=== PATIENT | male | born 1995 | race Two or more races ===

== ENCOUNTER 2018-10-10 13:59 | Emergency (ER) | payer MEDICAID ==
[~2018-10-10] VITALS: Ht 177.8 cm; Wt 77.1 kg
[2018-10-10] MEDS ORDERED: NKM (14:07)
[2018-10-10 14:19] VITALS: BP 127/56
[2018-10-10] MEDS ORDERED: Potassium Chloride 10 MEQ in 1/2 NS 1000ml 1,000 ML IV SCH (14:30)
[2018-10-10 15:25] LABS: HEMATOCRIT 50.1 % (42.0-52.0); MEAN CORPUSCULAR VOLUME 87 FL (80-99); PLATELET COUNT 262 K/UL (150-450); RED BLOOD COUNT 5.73 M/UL (4.70-6.10); RED CELL DISTRIBUTION WIDTH 11.1 % (11.6-14.8)
[2018-10-10 15:34] LABS: APPEARANCE,URINE CLOUDY; BILIRUBIN, URINE NEGATIVE (NEGATIVE); COLOR,URINE AMBER; GLUCOSE, URINE (UA) NEGATIVE (NEGATIVE); KETONES,URINE 4+ (NEGATIVE); LEUKOCYTE ESTERASE ,URINE NEGATIVE (NEGATIVE); NITRITE,URINE NEGATIVE (NEGATIVE); PH,URINE 8 (4.5-8.0); PROTEIN,URINE 1+ (NEGATIVE); UROBILINOGEN,URINE 1 MG/DL (0.0-1.0)
[2018-10-10 15:40] LABS: ANION GAP 16 mmol/L (5-15); BLOOD UREA NITROGEN 20 mg/dL (7-18); CALCIUM 9.8 MG/DL (8.5-10.1); CARBON DIOXIDE 23 MMOL/L (21-32); CHLORIDE 101 MMOL/L (98-107); CREATININE 1.1 MG/DL (0.55-1.30); POTASSIUM 3.3 MMOL/L (3.5-5.1); SODIUM 139 MMOL/L (136-145)
--- NOTE | 2018-10-10 15:42 | Emergency Room Report ---
History of Present Illness General Chief Complaint: Abdominal Pain Source: Patient (Clarissa Gonzalez) Present Illness HPI 23-year-old male with no significant past medical history here complaining of chest tightness and headache after having 2 bottles of loss, himself 1 day ago. He mentions he had multiple drinks last night at a concert denies any drug use or any smoking started walking home after and fell on the cement and hit his headache is to cement. He reports loss of consciousness and dizziness after the fall. He also reports shortness of breath and chest tightness after waking up in the morning as well as multiple bouts of emesis with a few blood- tinged bouts. Eyes abdominal pain and diarrhea. Denies vision changes, memory loss, and any other injury. Patient has been drinking oral fluids since he woke up this morning however he felt like he needed to come to the ER and be checked out. He appears agitated, pupils dilated, and mildly in distress (Clarissa Gonzalez) Allergies: Coded Allergies: No Known Allergies (Unverified , 10/10/18) Patient History Past Medical History: see triage record Past Surgical History: unable to obtain Pertinent Family History: none Immunizations: UTD Reviewed Nursing Documentation: PMH: Agreed; PSxH: Agreed (Clarissa Gonzalez) Nursing Documentation-PMH Past Medical History: No History, Except For Hx Asthma: Yes (Clarissa Gonzalez) Review of Systems All Other Systems: negative except mentioned in HPI (Clarissa Gonzalez) Physical Exam Vital Signs Date Time Temp Pulse Resp B/P (MAP) Pulse Ox O2 Delivery O2 Flow Rate FiO2 10/10/18 14:03 98.2 98 19 127/56 98 Room Air Sp02 EP Interpretation: reviewed, normal General Appearance: alert, GCS 15, mild distress Head: other - right parietal lobe tenderness to palpation no laceration observed Eyes: bilateral eye abnormal pupil, bilateral eye other - nystagmus ENT: normal ENT inspection, normal pharynx Neck: normal inspection, full range of motion, supple, thyroid normal Respiratory: normal inspection, lungs clear, normal breath sounds, no rhonchi, no respiratory distress, no wheezing Cardiovascular #1: no edema, no gallop, no murmur, no rub, tachycardia Cardiovascular #2: 2+ radial (R), 2+ radial (L) Gastrointestinal: normal inspection, soft, no mass Rectal: deferred Genitourinary: deferred Musculoskeletal: normal inspection, back normal, digits/nails normal, gait/ station normal Neurologic: alert, oriented x3, responsive, motor strength/tone normal, sensory intact, normal gait, speech normal Psychiatric: normal inspection, judgement/insight normal, memory normal, no suicidal/homicidal ideation Skin: normal inspection, normal color, no rash, warm/dry, palpation normal Lymphatic: normal inspection, no adenopathy (Clarissa Gonzalez) Medical Decision Making PA Attestation all diagnosis and treatment plans were reviewed and discussed my supervising physician Dr. Gomes (Clarissa Gonzalez) Diagnostic Impression: Primary Impression: Alcohol intoxication Qualified Codes: F10.929 - Alcohol use, unspecified with intoxication, unspecified Additional Impressions: Marijuana use Dehydration Head contusion Qualified Codes: S00.83XA - Contusion of other part of head, initial encounter ER Course 23-year-old male with no significant past medical history here complaining of chest tightness and headache after having 2 bottles of loss, himself 1 day ago. He mentions he had multiple drinks last night at a concert denies any drug use or any smoking started walking home after and fell on the cement and hit his headache is to cement. He reports loss of consciousness and dizziness after the fall. He also reports shortness of breath and chest tightness after waking up in the morning as well as multiple bouts of emesis with a few blood- tinged bouts. Eyes abdominal pain and diarrhea. Denies vision changes, memory loss, and any other injury. Patient has been drinking oral fluids since he woke up this morning however he felt like he needed to come to the ER and be checked out. He appears agitated, pupils dilated, and mildly in distress Ddx considered but are not limited to referral hematoma, head concussion, Mya-Miranda tear, intoxication, aspiration Vital signs: are WNL, pt. is afebrile H&PE are most consistent with alcohol intoxication, dehydration, head concussion , marijuana use ORDERS: blood alcohol level, tox screen, chest x-ray, EKG, head CT chest, cbc, cmp, ua, lipase, iv fluids with potassium, Zofran, CXR ED INTERVENTIONS: IV hydration DISCHARGE: At this time pt. is stable for d/c to home. Will provide printed patient care instructions, and any necessary prescriptions. Care plan and follow up instructions have been discussed with the patient prior to discharge. pos marijuana, potassium 3.3, 4+ ketones and urine (Clarissa Gonzalez) ER Course Please see above note. I examined this patient and agree with evaluation and treatment plan. (Samuel Gomes MD) EKG Diagnostic Results EP Interpretation: pericarditis Rate: tachycardiac Rhythm: other - pericarditis ST Segments: other - pericarditis (Clarissa Gonzalez) Chest X-Ray Diagnostic Results Chest X-Ray Diagnostic Results : Chest X-Ray Ordered: Yes # of Views/Limited/Complete: 1 View, 2 View Indication: Shortness of Breath EP Interpretation: Yes PA Xray: Interpretation reviewed, by supervising MD, and agrees with findings. Interpretation: no consolidation, no effusion, no pneumothorax, no acute cardiopulmonary disease Impression: No acute disease Electronically Signed by: Clarissa Gaxiola PA-C (Clarissa Gonzalez) CT/MRI/US Diagnostic Results CT/MRI/US Diagnostic Results : Imaging Test Ordered: head CT contrast Impression CT HEAD Without Contrast: No acute intracranial abnormality identified. Examination is limited by motion artifact at the skull base. (Clarissa Gonzalez) Last Vital Signs Date Time Temp Pulse Resp B/P (MAP) Pulse Ox O2 Delivery O2 Flow Rate FiO2 10/10/18 14:03 98.2 98 19 127/56 98 Room Air (Clarissa Gonzalez) Disposition: HOME, SELF-CARE Condition: Stable Scripts Ondansetron (Zofran) 4 Mg Tablet 4 MG ORAL Q6H PRN for Nausea & Vomiting, #10 TAB Prov: Clarissa Gonzalez 10/10/18 Referrals: [facility],REFERRING (PCP) Patient Instructions: Alcohol Intoxication, [id number], Cannabis Use Disorder , Dehydration, Adult, Fami-gc-Rodr, Facial or Scalp Contusion Additional Instructions: avoid drinking alcohol, follow with her primary care provider if vomiting continues, increase oral hydration, avoid using marijuana, Clarissa Gonzalez Oct 10, 2018 15:42 Samuel Gomes MD Oct 11, 2018 03:10
[2018-10-10 15:51] LABS: ALANINE AMINOTRANSFERASE 30 U/L (12-78); ALBUMIN 5.1 G/DL (3.4-5.0); ALBUMIN/GLOBULIN RATIO 1.1 (1.0-2.7); ALKALINE PHOSPHATASE 71 U/L (46-116); ASPARTATE AMINO TRANSFERASE 31 U/L (15-37); BILIRUBIN,TOTAL 1.2 MG/DL (0.2-1.0)
[2018-10-10 16:01] LABS: BILIRUBIN,DIRECT 0.3 MG/DL (0.0-0.3)
[2018-10-10 16:30] VITALS: BP 124/59
[2018-10-10] MEDS ORDERED: ZOFRAN4 M1 ORAL (17:28)
[2018-10-10 17:39] VITALS: BP 113/55
--- NOTE | 2018-10-11 09:44 | Diagnostic Imaging Report ---
Indication: Headache. Trauma Technique: Contiguous 5 mm thick transaxial imaging of the head obtained in a Siemens Sensation [address] scanner. Soft tissue and bone windows generated. Automatic Exposure Control was utilized. Total Dose length Product (DLP): 1312.[address] Dose Index Volume (CTDIvol): 70.38 mGy Comparison: none Findings: The size and configuration of the cortical sulci, basal cisterns, and ventricles are within normal limits for age. There is no mass effect, midline shift, or edema identified. There is no evidence of acute hemorrhage or abnormal intra-axial or extra-axial fluid collections. The bones and soft tissues are unremarkable. Impression: No mass effect, edema or acute bleed. Study limited by [facility] has communicated the preliminary results to the Emergency Department. Their findings are largely concordant with this report. The CT scanner at [facility] is accredited by the [employer] and the scans are performed using dose optimization techniques as appropriate to a performed exam including Automatic Exposure control.
--- NOTE | 2018-10-11 11:42 | Diagnostic Imaging Report ---
Indication: Chest pain Comparison: None A single view chest radiograph was obtained. Findings: Cardiomediastinal appearance is within normal limits for age. The lungs are clear. Pulmonary vascularity is appropriate. The diaphragmatic contour is smooth and costophrenic angles are sharp. No pleural effusions are identified. The bones are unremarkable. Impression: No acute findings
== END 2018-10-10 17:44 | disposition home or self-care (01) ==
LOC: EMR 14:12
DX: F10.929 Alcohol use, unspecified with intoxication, unspecified (principal); F12.90 Cannabis use, unspecified, uncomplicated; E86.0 Dehydration; S00.83XA Contusion of other part of head, initial encounter; R51 Headache; W19.XXXA Unspecified fall, initial encounter; Y92.9 Unspecified place or not applicable; I31.9 Disease of pericardium, unspecified
CPT/HCPCS: 36415; 70450; 71045; 80053; 80307; 80329; 81001; 82248; 83690; 85007; 85025; 93005; 96365; 96366; 99284

== ENCOUNTER 2020-07-13 08:49 | Emergency (ER) | payer MEDICAID ==
[~2020-07-13] VITALS: Ht 180.3 cm; Wt 72.6 kg
[~2020-07-13 08:49] MED LIST: NKM; ZOFRAN4 M1 ORAL
[2020-07-13 09:02] VITALS: BP 132/80
--- NOTE | 2020-07-13 09:33 | Emergency Room Report ---
History of Present Illness General Chief Complaint: Behavioral Complaint Present Illness HPI Patient is a 25-year-old male presents for increased auditory hallucinations. He states that he wants mental health checkup. States that he hears voices "politicing". He denies any command hallucinations. Denies prior history of psychiatric disease or previous hospitalization. Denies any suicidal thoughts. He states that he has not been having any thoughts of harming himself or command hallucinations. States [place] in town but will not specify any further. Allergies: Coded Allergies: No Known Allergies (Unverified , 10/10/18) COVID-19 Screening COVID-19 risk:Contact w/high r: No Has patient experienced aguirre: No COVID-19 Testing performed [employer] INSPECTOR: No Patient History Past Medical History: see triage record Reviewed Nursing Documentation: PMH: Agreed; PSxH: Agreed Nursing Documentation-PMH Hx Asthma: Yes History Of Psychiatric Problem: Yes Review of Systems All Other Systems: negative except mentioned in HPI Physical Exam Vital Signs Date Time Temp Pulse Resp B/P (MAP) Pulse Ox O2 Delivery O2 Flow Rate FiO2 07/13/20 08:55 98.6 94 20 132/80 (97) 98 Room Air Sp02 EP Interpretation: reviewed, normal General Appearance: alert/responsive, no apparent distress, GCS 15, non-toxic Head: atraumatic Eyes: PERRL, lids + conjunctiva normal ENT: normal ENT inspection, hearing intact, no angioedema Neck: supple/symm/no masses, no meningismus Respiratory: effort normal, no wheezing, chest symmetrical Cardiovascular: regular rate, rhythm, no edema Cardiovascular #2: 2+ carotid (R), 2+ carotid (L), 2+ dorsalis pedis (R), 2+ dorsalis pedis (L) Gastrointestinal: non-tender, no mass, non-distended, no rebound/guarding, normal bowel sounds Musculoskeletal: gait & station normal, normal ROM, strength & tone normal, non -tender Neurologic: normal inspection, CN II-XII intact, oriented x3, sensory intact, normal speech Psychiatric: normal inspection, affect normal, other - Slightly anxious ; denied suicidal thoughts. Denies command hallucinations Skin: no rash, well hydrated Lymphatic: normal inspection Medical Decision Making Diagnostic Impression: Primary Impression: Psychiatric disorder ER Course Patient presented for mental health evaluation. Differential diagnosis include was not limited to substance abuse, psychosis, among others. Patient is well dressed and does not appear to be homeless. He states that he does not have any thoughts of harming himself and has a good plan for self-care. Does not appear to be holdable for psychiatric purposes. Patient agreed to medications with low-dose antipsychotic. He appears to be stable for outpatient psychiatric evaluation and was given referrals to outpatient mental health facility. He was given prescription for Risperdal. Patient was advised to return if he develop suicidal thoughts or had any other concerns. This medical record is generated with [employer] metal organ pipe maker software. There may be some metal organ pipe maker discrepancies related to use of this software Last Vital Signs Date Time Temp Pulse Resp B/P (MAP) Pulse Ox O2 Delivery O2 Flow Rate FiO2 07/13/20 09:02 94 20 Room Air 07/13/20 09:02 98.6 132/80 98 Status: improved Disposition: HOME, SELF-CARE Condition: Stable Scripts Risperidone* (RISPERDAL*) 1 Mg Tablet 1 MG PO DAILY, #14 TAB Prov: Car Wakefield MD 07/13/20 Referrals: [facility],REFERRING (PCP) Car Wakefield MD Jul 13, 2020 09:33
[2020-07-13] MEDS ORDERED: RISPERDAL1 MG PO (09:34)
[2020-07-13 09:42] VITALS: BP 130/81
== END 2020-07-13 09:42 | disposition home or self-care (01) ==
LOC: EMR 09:20
DX: F09 Unspecified mental disorder due to known physiological condition (principal)
CPT/HCPCS: 99282

== ENCOUNTER 2020-11-05 16:19 | Emergency (ER) | payer MEDICAID ==
[~2020-11-05] VITALS: Ht 180.3 cm; Wt 72.6 kg
[~2020-11-05 16:19] MED LIST changes: +RISPERDAL1 MG PO
[2020-11-05 16:35] VITALS: BP 124/71
--- NOTE | 2020-11-05 16:35 | NUR ---
Nurse Note: Pt walked in c/o "physical condition". Pt inapprately laughing, not making eye contact, robert explainations. Pt stated he is takng risperidone.
[2020-11-05 16:40] VITALS: BP 124/71
--- NOTE | 2020-11-05 16:40 | NUR ---
ED Nurse Note: Pt cleared by health care Provider for discharge. DC instructions/prescription was given and explained to pt and verbalized understanding of teachings. Instructed pt to follow up with PCP within 1-3 days. All medical deviecs such as ID band removed. Pt is AAO x4, ambulatory and left with all personal belongings.
--- NOTE | 2020-11-05 16:41 | Emergency Room Report ---
History of Present Illness General Chief Complaint: General Complaint Source: Patient Present Illness HPI Disclaimer: Please note that this report is being documented using [employer] technology. This can lead to erroneous entry secondary to incorrect interpretation by the dictating instrument. HPI: 25-year-old male presents requesting erectile dysfunction medication. Patient states he is unable to achieve erection for some time but will not say how long. Also states he cannot maintain an erection sometimes. Denies pain or discomfort. Denies trauma to the penis or testicles. Denies penile discharge, dysuria, hematuria, lumps or masses. Patient is a history of psychiatric disorder and is on Risperdal. Does not have a PMD. 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 EOMI. Resp: Normal work of breathing Skin: Intact. No abrasions, laceration or rash over the exposed skin MSK: Normal tone and bulk. Moving all extremities. No obvious deformity. Neuro: Awake and alert. Mentating appropriately Medical Decision Making Diagnostic Impression: Primary Impression: Encounter for generalized patient complaints ER Course Is a 25-year-old male presenting requesting medication for erectile dysfunction. May be a side effect of his respite all or other etiology. He is in no acute distress and does not require emergent labs or imaging at this time. I informed her that these are not the types of medication that are prescribed for emergency department though he would need to follow-up with a psychiatrist and will refer him to primary care clinic. He can discuss his matter with them further. Instructed to return with new or worsening symptoms. Last Vital Signs Date Time Temp Pulse Resp B/P (MAP) Pulse Ox O2 Delivery O2 Flow Rate FiO2 1/4/21 16:25 98.2 77 19 124/71 (88) 97 Room Air Disposition: HOME, SELF-CARE Condition: Stable Referrals: [facility] Patient Instructions: Erectile Dysfunction Additional Instructions: Please follow-up with your primary care doctor in the next 1 to 3 days to discuss this emergency department visit and for reevaluation. If you have any new or worsening symptoms please return to the emergency department for reevaluation. Please note that this report is being documented using [employer] technology. This can lead to erroneous entry secondary to incorrect interpretation by the dictating instrument. Nikolas Carson MD Nov 05, 2020 16:41
== END 2020-11-05 16:40 | disposition home or self-care (01) ==
LOC: EMR 16:35
DX: N52.9 Male erectile dysfunction, unspecified (principal); J45.909 Unspecified asthma, uncomplicated
CPT/HCPCS: 99281